=== PATIENT | female | born 1995 | race Caucasian/White ===

== ENCOUNTER 2017-06-18 10:13 | Emergency (ER) | payer SELFPAY ==
[~2017-06-18] VITALS: Ht 167.6 cm; Wt 74.4 kg
[2017-06-18 10:17] VITALS: Ht 167.6 cm; Wt 74.4 kg
[2017-06-18 10:57] LABS: BASOPHIL % 0.4 % (0-2); PLATELET COUNT 332 x10^3mcL (130-400); RED CELL DISTRIBUTION WIDTH 13.3 % (11.5-14.5)
[2017-06-18 12:45] VITALS: BP 115/76
== END 2017-06-18 12:45 | disposition home or self-care (01) ==
LOC: ED 10:13
PROVIDERS: Emergency Medicine
DX: O20.0 Threatened abortion (principal); Z3A.08 8 weeks gestation of pregnancy
CPT/HCPCS: 36415

== ENCOUNTER 2017-06-21 12:24 | Emergency (ER) | payer OTHER ==
[~2017-06-21] VITALS: Ht 165.1 cm; Wt 74.1 kg
[2017-06-21 12:52] VITALS: BP 116/63; Ht 165.1 cm; Wt 74.1 kg
== END 2017-06-21 14:38 | disposition left against medical advice (07) ==
LOC: ED 12:24
DX: Z53.21 Procedure and treatment not carried out due to patient leaving prior to being seen by health care provider (principal)

== ENCOUNTER 2017-06-22 14:20 | Inpatient (IN) | payer OTHER ==
[~2017-06-22] VITALS: Ht 167.6 cm; Wt 73.5 kg
[2017-06-22 15:50] LABS: BASOPHIL % 1.4 % (0-2); PLATELET COUNT 357 x10^3mcL (130-400); RED CELL DISTRIBUTION WIDTH 12.6 % (11.5-14.5)
[2017-06-22 17:33] LABS: CALCIUM 8.8 mg/dL (8.5-10.1); CARBON DIOXIDE 25.8 mmol/L (21-32); CHLORIDE SERUM 103 mmol/L (98-107); CREATININE SERUM 0.5 mg/dL (0.6-1.0); GFR1 > 60 mL/min; GLUCOSE SERUM 87 mg/dL (74-106); POTASSIUM SERUM 4.3 mmol/L (3.5-5.1); SODIUM SERUM 139 mmol/L (136-145)
[2017-06-22 17:38] LABS: ALBUMIN 4.2 g/dL (3.4-5.0); ALKALINE PHOSPHATASE 53 U/L (46-116); ALT/SGPT 32 U/L (14-59); AST/SGOT 15 U/L (15-37); BILIRUBIN TOTAL 0.44 mg/dL (0.20-1.00); TOTAL PROTEIN, SERUM 8.2 g/dL (6.4-8.2)
[2017-06-22 17:41] LABS: T3 TOTAL 0.98 ng/mL
[2017-06-22 17:46] LABS: microscopic required? YES; urine erythrocyte 3+ (NEGATIVE)
[2017-06-22 17:58] VITALS: BP 122/56
[2017-06-22 17:58] LABS: AMPHETAMINE QUAL UR NONE DETECTED (NEG <=1000)
[2017-06-22 19:05] LABS: CHOLESTEROL/HDL RATIO 3.2; MAGNESIUM 2.1 mg/dL (1.8-2.4); PHOSPHOROUS 3.9 mg/dL (2.5-4.9)
[2017-06-22 19:14] LABS: FREE T4 0.98 ng/dL (0.76-1.46); FREE THYROXINE INDEX 2.6 ug/dL (1.4-4.5); T4(THYROXINE) 7.5 ug/dL (4.7-13.3)
[2017-06-22 21:14] VITALS: BP 103/52
[2017-06-23 05:17] VITALS: BP 90/56
[2017-06-23 06:20] LABS: CALCIUM 8.3 mg/dL (8.5-10.1); CARBON DIOXIDE 26.2 mmol/L (21-32); CHLORIDE SERUM 108 mmol/L (98-107); CREATININE SERUM 0.5 mg/dL (0.6-1.0); GFR1 > 60 mL/min; GLUCOSE SERUM 86 mg/dL (74-106); POTASSIUM SERUM 3.8 mmol/L (3.5-5.1); SODIUM SERUM 141 mmol/L (136-145)
[2017-06-23 06:31] LABS: BASOPHIL % 0.4 % (0-2); PLATELET COUNT 295 x10^3mcL (130-400); RED CELL DISTRIBUTION WIDTH 13.1 % (11.5-14.5)
[2017-06-23 10:04] VITALS: BP 105/54
[2017-06-23 11:31] VITALS: BP 105/54
== END 2017-06-23 14:55 | disposition home or self-care (01) | DRG 566 ==
LOC: ED 14:20 → DU 16:51
PROVIDERS: Emergency Medicine; ADMIT Family Medicine
DX: O00.90 Unspecified ectopic pregnancy without intrauterine pregnancy (principal); N17.0 Acute kidney failure with tubular necrosis; N92.0 Excessive and frequent menstruation with regular cycle
CPT/HCPCS: 83880; 84439; J7030

== ENCOUNTER 2019-08-29 16:51 | Emergency (ER) | payer OTHER ==
[~2019-08-29] VITALS: Ht 162.6 cm; Wt 72.6 kg
[2019-08-29 16:56] VITALS: BP 113/60; Ht 162.6 cm; Wt 72.6 kg
== END 2019-08-29 19:29 | disposition left against medical advice (07) ==
LOC: ED 16:51
DX: R51 Headache (principal); R11.0 Nausea